=== PATIENT | female | born 1940 | race Two or more races ===

== ENCOUNTER 2021-09-25 07:56 | Outpatient (CLI) | payer OTHER | END 2021-09-25 08:05 | disposition home or self-care (01) | LOC: RAD 07:56 → RX STUDY 08:45 | PROVIDERS: ATTEND Internal Medicine Gastroenterology | DX: K30 Functional dyspepsia (principal); R10.31 Right lower quadrant pain; K21.00 Gastro-esophageal reflux disease with esophagitis, without bleeding ==